=== PATIENT | female | born 1950 | race Caucasian/White ===

== ENCOUNTER → 2018-11-24 | Outpatient (CLI) | payer MEDICARE, MEDICAID ==
--- NOTE | 2018-11-24 11:04 | NUR ---
SPO2 DID NOT DROP BELOW 94% WITH EXERTION.
[2018-11-24 11:07] LABS: ABG BASE EXCESS -0.4 MMOL/L (-2.5-2.5); ABG OXYGEN SATURATION 95 % (94-100); ABG PCO2 35 MMHG (35-45); ABG PH 7.44 (7.37-7.43); ABG PO2 71 MMHG (79-93); ABG TCO2 24.3 MMOL/L (21.0-31.0); ALLENS TEST YES-POS; INSPIRED O2 RA; VENTILATOR NO
[2018-11-24 11:08] LABS: PATIENT TEMP 99.2
--- NOTE | 2018-11-24 13:27 | Diagnostic Imaging Report ---
PATIENT HISTORY: COPD DYSPNEA OBESTIY SEASONAL ALLERGIES. TECHNIQUE: Two-view of the chest. COMPARISON: None. FINDINGS: Lung volumes are mildly large. No focal consolidation is seen. There is no pleural effusion or pneumothorax. The cardiac silhouette is normal in size. There is exaggerated kyphosis of the thoracic spine. Degenerative changes are seen in the spine. IMPRESSION: Mildly large lung volumes with no acute pulmonary abnormality seen. Dictated by: Dictated on workstation # [id number]
== END ==
LOC: LAB 10:28
PROVIDERS: ATTEND Nurse Practitioner Family
DX: J44.9 Chronic obstructive pulmonary disease, unspecified (principal); R06.00 Dyspnea, unspecified; E66.9 Obesity, unspecified; G47.50 Parasomnia, unspecified; J30.2 Other seasonal allergic rhinitis
CPT/HCPCS: 36600; 71046; 82805; 94761